=== PATIENT | female | born 1950 | race Caucasian/White ===

== ENCOUNTER 2021-06-26 08:58 | Observation (INO) ==
[2021-06-26 09:58] LABS: Bilirubin,Urine Negative (Negative); Blood,Urine Negative (Negative); Clarity,Urine Clear (Clear); Color,Urine Yellow (Yellow); Glucose,Urine (UA) Normal (Normal); Ketones,Urine Negative (Negative); Leukocyte Esterase,Urine Negative (Negative); Nitrite,Urine Negative (Negative); PH,Urine 5.5 pH Units (5.0-8.0); Protein,Urine Negative (Neg-Trace); Urobilinogen,Urine Normal (Normal)
[2021-06-26 09:59] LABS: Basophils # 0.1 K/mcL (0.0-0.2); Basophils % 0.6 %; Eosinophils # 0.2 K/mcL (0.0-0.6); Eosinophils % 2.3 %; Hematocrit 34.1 % (35.3-44.9); Hemoglobin 11.5 g/dL (11.5-15.4); Immature Granulocytes % 0.4 % (0-4); Lymphocytes # 1.9 K/mcL (0.6-4.6); Lymphocytes % 19.3 %; Mean Corpuscular HGB Conc 33.7 g/dL (31.6-35.5); Mean Corpuscular Hemoglobin 30.4 pg (28.0-33.3); Mean Corpuscular Volume 90.2 fL (83.0-100.0); Mean Platelet Volume 9.4 fL (9.4-12.4); Monocytes # 0.8 K/mcL (0.0-1.3); Monocytes % 8.2 %; Neutrophils # 6.7 K/mcL (1.6-8.9); Platelet Count 196 K/mcL (140-400); Red Blood Count 3.78 M/mcL (3.82-4.97); Red Cell Distribution Width 12.2 % (11.5-14.5); Segmented Neutrophils % 69.2 %; White Blood Count 9.7 K/mcL (4.3-11.1)
[2021-06-26 10:12] LABS: Activated Partial Thrombo Time 25.7 Seconds (26.0-36.0)
[2021-06-26 10:18] LABS: Acetaminophen < 10 mcg/mL (10-20); Alanine Aminotransferase 61 Units/L (7-52); Albumin 3.6 g/dL (3.5-5.7); Albumin/Globulin Ratio 1.1 (1.1-2.2); Alkaline Phosphatase 73 Units/L (34-104); Aspartate Amino Transferase 66 Units/L (13-39); BUN/Creatinine Ratio 19 (6-26); Bilirubin,Total 0.6 mg/dL (0.3-1.0); Blood Urea Nitrogen 18 mg/dL (8-23); Calcium 8.8 mg/dL (8.6-10.3); Carbon Dioxide 24 mEq/L (23-29); Chloride 100 mEq/L (98-107); Ethanol < 10 mg/dL (Less than 10); Globulin 3.2 g/dL (2.4-3.5); Glucose 113 mg/dL (70-105); Magnesium 1.1 mg/dL (1.6-2.6); Osmolality,Calculated 287 (280-300); Potassium 3.8 mEq/L (3.5-5.1); Salicylate 9.9 mg/dL (15.0-30.0); Sodium 137 mEq/L (136-145); Total Protein 6.8 g/dL (6.4-8.9); eGFR For African Americans > 60 (> 60); eGFR For Non-African Americans 59 (> 60)
[2021-06-26 10:19] LABS: Amphetamine Screen,Urine Negative ng/mL (Cutoff=1000); Barbiturate Screen,Urine Negative ng/mL (Cutoff=200); Benzodiazepines Screen,Urine Positive ng/mL (Cutoff=200); Cannabinoid Screen,Urine Negative ng/mL (Cutoff = 50); Cocaine Screen,Urine Negative ng/mL (Cutoff= 300); Opiate Screen,Urine Positive ng/mL (Cutoff=300); Phencyclidine Screen,Urine Negative ng/mL (Cutoff=25)
[2021-06-26 10:21] LABS: Troponin I < 0.03 ng/mL (< 0.04)
[2021-06-26 10:34] LABS: Thyroid Stimulating Hormone 3.799 mcIU/mL (0.340-5.600)
[2021-06-26] MEDS ORDERED: Magnesium Oxide 400 MG TABLET PO ONE (10:42)
[2021-06-26] MEDS ORDERED: 0.9 % Sodium Chloride 500 ML IVC ONE (11:43)
[2021-06-26] MEDS ORDERED: Naloxone 0.4 MG/ML INJ IVP PRN (11:58)
[2021-06-26] MEDS ORDERED: Ondansetron 4 MG/2 ML VIAL IVP PRN (11:58)
[2021-06-26] MEDS ORDERED: Acetaminophen 325 MG TABLET PO PRN (11:58)
[2021-06-26] MEDS ORDERED: *HR* OxyCODONE Immed Rel 5 MG TABLET PO PRN (14:21)
[2021-06-26] MEDS ORDERED: Furosemide 20 MG TABLET PO PRN (14:21)
[2021-06-26] MEDS ORDERED: NON-FORMULARY MEDICATION 1 EACH EACH (Alendronate Sodium [Fosamax] 35 MG Tablet) PO SCH (14:30)
[2021-06-26] MEDS: diazePAM 5 MG TABLET PO SCH ×2 (15:47→23:02)
[2021-06-26] MEDS: (Icosapent Ethyl [Vascepa] 1 GM Capsule) PO SCH (23:02)
[2021-06-26] MEDS: *HR* Metformin 500 MG TABLET PO SCH (23:02)
[2021-06-26] MEDS: traZODone 50 MG TABLET PO SCH (23:02)
[2021-06-27 06:30] LABS: Albumin 3.5 g/dL (3.5-5.7); Albumin/Globulin Ratio 1.2 (1.1-2.2); Bilirubin,Total 0.6 mg/dL (0.3-1.0); Calcium 8.7 mg/dL (8.6-10.3); Potassium 3.7 mEq/L (3.5-5.1); Total Protein 6.5 g/dL (6.4-8.9)
[2021-06-27 06:31] LABS: Magnesium 1.4 mg/dL (1.6-2.6)
[2021-06-27] MEDS ORDERED: Magnesium Oxide 400 MG TABLET PO ONE (10:42)
[2021-06-27] MEDS: Cholecalciferol (D-3) 1,000 UNIT (25MCG) TABLET PO SCH (11:41)
[2021-06-27] MEDS: Fenofibrate 54 MG TABLET PO SCH (11:41)
[2021-06-27] MEDS: Multivit/Ca/Min/Fe/FA 1 TAB TABLET PO SCH (11:42)
[2021-06-27] MEDS: Venlafaxine XR (24 HR) 75 MG CAP.ER.24H PO SCH (11:42)
[2021-06-27] MEDS: diazePAM 5 MG TABLET PO SCH ×3 (11:42→21:24)
[2021-06-27] MEDS: Lactobacillus 1 EACH CAP.SPRINK PO SCH (11:42)
[2021-06-27] MEDS: *HR* Metformin 500 MG TABLET PO SCH ×2 (11:42→21:23)
[2021-06-27] MEDS: Aspirin Enteric Coated 81 MG Tablet PO SCH (11:42)
[2021-06-27] MEDS: (Icosapent Ethyl [Vascepa] 1 GM Capsule) PO SCH ×2 (11:43→21:24)
[2021-06-27 12:59] LABS: Folate 11.2 ng/mL (3.0-16.0)
[2021-06-27] MEDS: traZODone 50 MG TABLET PO SCH (21:24)
[2021-06-28 07:34] LABS: Basophils % 0.6 %; Eosinophils # 0.2 K/mcL (0.0-0.6); Eosinophils % 2.9 %; Immature Granulocytes % 0.6 % (0-4); Lymphocytes # 1.8 K/mcL (0.6-4.6); Lymphocytes % 25.3 %; Mean Corpuscular HGB Conc 32.4 g/dL (31.6-35.5); Mean Corpuscular Hemoglobin 29.7 pg (28.0-33.3); Mean Corpuscular Volume 91.9 fL (83.0-100.0); Mean Platelet Volume 9.9 fL (9.4-12.4); Monocytes # 0.6 K/mcL (0.0-1.3); Monocytes % 8.9 %; Neutrophils # 4.3 K/mcL (1.6-8.9); Platelet Count 193 K/mcL (140-400); Red Cell Distribution Width 12.3 % (11.5-14.5); Segmented Neutrophils % 61.7 %; White Blood Count 6.9 K/mcL (4.3-11.1)
[2021-06-28 07:44] LABS: BUN/Creatinine Ratio 15 (6-26); Blood Urea Nitrogen 14 mg/dL (8-23); Calcium 8.5 mg/dL (8.6-10.3); Carbon Dioxide 28 mEq/L (23-29); Chloride 104 mEq/L (98-107); Glucose 139 mg/dL (70-105); Magnesium 1.4 mg/dL (1.6-2.6); Osmolality,Calculated 293 (280-300); Potassium 4.1 mEq/L (3.5-5.1); Sodium 140 mEq/L (136-145); eGFR For African Americans > 60 (> 60); eGFR For Non-African Americans > 60 (> 60)
[2021-06-28] MEDS ORDERED: Magnesium Oxide 400 MG TABLET PO SCH (09:00)
[2021-06-28] MEDS: Cholecalciferol (D-3) 1,000 UNIT (25MCG) TABLET PO SCH (10:01)
[2021-06-28] MEDS: Multivit/Ca/Min/Fe/FA 1 TAB TABLET PO SCH (10:01)
[2021-06-28] MEDS: *HR* Metformin 500 MG TABLET PO SCH ×2 (10:02→22:14)
[2021-06-28] MEDS: Fenofibrate 54 MG TABLET PO SCH (10:02)
[2021-06-28] MEDS: diazePAM 5 MG TABLET PO SCH ×3 (10:02→22:13)
[2021-06-28] MEDS: Aspirin Enteric Coated 81 MG Tablet PO SCH (10:02)
[2021-06-28] MEDS: Lactobacillus 1 EACH CAP.SPRINK PO SCH (10:02)
[2021-06-28] MEDS: Venlafaxine XR (24 HR) 75 MG CAP.ER.24H PO SCH (10:02)
[2021-06-28] MEDS: (Icosapent Ethyl [Vascepa] 1 GM Capsule) PO SCH ×2 (11:17→22:13)
[2021-06-28] MEDS: Cyanocobalamin (B-12) 1,000 MCG TABLET PO SCH (11:22)
[2021-06-28] MEDS: traZODone 50 MG TABLET PO SCH (22:13)
[2021-06-28] MEDS: Magnesium Oxide 400 MG TABLET PO SCH (22:14)
[2021-06-29 04:12] VITALS: RESP 16
[2021-06-29] MEDS ORDERED: *HR* Metformin 500 MG TABLET PO SCH (08:00)
[2021-06-29 08:06] VITALS: O2SAT 96
[2021-06-29] MEDS: diazePAM 5 MG TABLET PO SCH (08:24)
[2021-06-29] MEDS: Cholecalciferol (D-3) 1,000 UNIT (25MCG) TABLET PO SCH (08:24)
[2021-06-29] MEDS: Magnesium Oxide 400 MG TABLET PO SCH (08:25)
[2021-06-29] MEDS: Cyanocobalamin (B-12) 1,000 MCG TABLET PO SCH (08:25)
[2021-06-29] MEDS: Aspirin Enteric Coated 81 MG Tablet PO SCH (08:25)
[2021-06-29] MEDS: Fenofibrate 54 MG TABLET PO SCH (08:25)
[2021-06-29] MEDS: Multivit/Ca/Min/Fe/FA 1 TAB TABLET PO SCH (08:25)
[2021-06-29] MEDS: (Icosapent Ethyl [Vascepa] 1 GM Capsule) PO SCH (08:26)
[2021-06-29] MEDS: Lactobacillus 1 EACH CAP.SPRINK PO SCH (08:26)
[2021-06-29] MEDS: Venlafaxine XR (24 HR) 75 MG CAP.ER.24H PO SCH (08:26)
[2021-06-29 11:29] VITALS: BP 137/84; PULSE 89; TEMP 98
== END 2021-06-29 15:20 | disposition home or self-care (01) ==
LOC: INPGRE 08:58 → EMEROOGRE 08:58 → INPGRE 12:46
PROVIDERS: ADMIT Family Medicine; ATTEND Family Medicine